=== PATIENT | male | born 1950 | race Caucasian/White ===

== ENCOUNTER → 2020-07-10 | Outpatient (CLI) | payer OTHER, MEDICARE ==
[~2020-07-10] MED LIST: ASPIRIN EC325 M1 PO; CLONIDINE HCL0.3 M3 PO; COREG25 M1 PO; ESTER-C 1,0001 EACH PO; FLECAINIDE ACET50 M2 PO; HYDROCHLOROTHIA25 M2 PO; IMBRUVICA420 MG PO; KEFLEX500 M1 PO; LOSARTAN POTAS100 MG PO; MAXZIDE-25 MG1 EACH PO; SIMVASTATIN80 MG PO; SUPER THERAVIT1 EACH PO; TOPROL XL25 MG PO; VITAMIN D31250 MC1 PO
== END ==
LOC: SJCVC 16:56
PROVIDERS: ATTEND Internal Medicine Cardiovascular Disease
DX: I48.0 Paroxysmal atrial fibrillation (principal); I49.5 Sick sinus syndrome; C91.10 Chronic lymphocytic leukemia of B-cell type not having achieved remission; I10 Essential (primary) hypertension; E78.5 Hyperlipidemia, unspecified; I25.10 Atherosclerotic heart disease of native coronary artery without angina pectoris; Z95.0 Presence of cardiac pacemaker; Z90.49 Acquired absence of other specified parts of digestive tract; Z88.8 Allergy status to other drugs, medicaments and biological substances; Z79.82 Long term (current) use of aspirin; Z79.899 Other long term (current) drug therapy; Z87.891 Personal history of nicotine dependence; Z82.49 Family history of ischemic heart disease and other diseases of the circulatory system

== ENCOUNTER → 2020-09-05 | Outpatient (CLI) | payer OTHER, MEDICARE ==
[~2020-09-05] MED LIST changes: +CARVEDILOL25 MG PO; +COZAAR 25 MG TA25 M1 PO; +ELIQUIS5 MG PO; +FLECAINIDE ACE150 MG PO; +LANOXIN 0.25M0.25 M1 PO; +VITAMIN D3250 MCG PO
[2020-09-05 09:35] LABS: ABSOLUTE NEUTROPHILS 1.7 thou/uL (1.4-8.2); BASOPHILS 0.7 % (0.0-2.0); EOSINOPHILS 2.2 % (0.0-3.0); HEMATOCRIT 36.8 % (42.0-52.0); HEMOGLOBIN 12.2 gm/dL (14.0-18.0); LYMPHOCYTES 42.9 % (24.0-44.0); MCH 29.9 pg (26.0-34.0); MCV 90.7 fL (80.0-100.0); POLYS 33.2 % (36.0-66.0); RBC 4.06 mil/uL (4.50-6.00); WBC 5.2 thou/uL (4.0-11.0)
[2020-09-05 09:57] LABS: ALBUMIN 3.6 g/dL (3.4-5.0); CALCIUM 8.8 mg/dL (8.5-10.1); CREATININE 1.2 mg/dL (0.7-1.3); TOTAL BILIRUBIN 0.4 mg/dL (0.2-1.0); TOTAL PROTEIN 6.3 g/dL (6.4-8.2)
[2020-09-05 13:00] LABS: LARGE PLATELETS FEW; PLATELET COUNT 123 thou/uL (150-400)
== END ==
LOC: CAT 08:47
PROVIDERS: ATTEND Internal Medicine Cardiovascular Disease
DX: I25.10 Atherosclerotic heart disease of native coronary artery without angina pectoris (principal); I48.91 Unspecified atrial fibrillation; M47.814 Spondylosis without myelopathy or radiculopathy, thoracic region; Z95.810 Presence of automatic (implantable) cardiac defibrillator

== ENCOUNTER 2020-09-07 06:29 | Observation (INO) | payer OTHER, MEDICARE ==
[~2020-09-07] VITALS: Ht 180.3 cm; Wt 84.4 kg
[~2020-09-07 06:29] MED LIST changes: -CARVEDILOL25 MG PO; -COZAAR 25 MG TA25 M1 PO; -ELIQUIS5 MG PO; -FLECAINIDE ACE150 MG PO; -LANOXIN 0.25M0.25 M1 PO; -VITAMIN D3250 MCG PO
[2020-09-07 07:42] VITALS: BP 147/77
[2020-09-07] MEDS ORDERED: CARVEDILOL25 MG PO ×3 (08:00→08:08)
[2020-09-07] MEDS ORDERED: LANOXIN 0.25M0.25 M1 PO ×2 (08:01→08:02)
[2020-09-07] MEDS ORDERED: FLECAINIDE ACE150 MG PO (08:03)
[2020-09-07] MEDS ORDERED: ESTER-C 1,0001 EACH PO (08:03)
[2020-09-07] MEDS ORDERED: ELIQUIS5 MG PO (08:03)
[2020-09-07] MEDS ORDERED: COZAAR 25 MG TA25 M1 PO (08:04)
[2020-09-07] MEDS ORDERED: IMBRUVICA420 MG PO (08:04)
[2020-09-07] MEDS ORDERED: MAXZIDE-25 MG1 EACH PO (08:05)
[2020-09-07] MEDS ORDERED: SIMVASTATIN80 MG PO (08:05)
[2020-09-07] MEDS ORDERED: VITAMIN D3250 MCG PO (08:07)
[2020-09-07 08:18] LABS: HEMATOCRIT 36.2 % (42.0-52.0); MCHC 33.1 g/dL (28.0-37.0); MCV 90.9 fL (80.0-100.0); RBC 3.99 mil/uL (4.50-6.00); RDW 14.9 % (10.5-14.5); WBC 5.4 thou/uL (4.0-11.0)
[2020-09-07 08:35] LABS: APTT 27.4 Seconds (24.5-32.8); PROTIME 10.9 Seconds (10.5-12.1)
[2020-09-07 08:41] LABS: CALCIUM 8.6 mg/dL (8.5-10.1); CREATININE 1.6 mg/dL (0.7-1.3); POTASSIUM 4.1 mmol/L (3.5-5.1)
[2020-09-07 08:43] LABS: ALBUMIN 3.7 g/dL (3.4-5.0); TOTAL BILIRUBIN 0.3 mg/dL (0.2-1.0); TOTAL PROTEIN 6.2 g/dL (6.4-8.2)
[2020-09-07 08:57] LABS: ABSOLUTE NEUTROPHILS 1.6 thou/uL (1.4-8.2); ATYPICAL LYMPHS 1 %; LARGE PLATELETS FEW; PLATELET COUNT 128 thou/uL (150-400)
--- NOTE | 2020-09-07 11:14 | TEE ---
[facility] [place] [address] TRANSESOPHAGEAL ECHOCARDIOGRAM Name: GAVINO BARCENAS Room #: REG [facility]#: [id number] Admission: 09/07/20 Attend Phys: Tyler Gould MD Discharge: Date of : 50 Report #: [id number] THIS REPORT FOR: cc: Mark Cole MD, Mohd I. MD Santiago, Patrick MD [facility] ~ ADDENDUM APPROVED REPORT Study performed: 09/07/2020 08:53:49 EXAM: Comprehensive 2D, Doppler, and color-flow Echocardiogram Patient Location: Out-Patient Room #: EP Status: routine BSA: 2.04 HR: 62 bpm BP: 140/68 mmHg Rhythm: Pacemaker Other Information Study Quality: Good Indications Atrial Fibrillation Echo Enhancing Agent Indication: Rule out Shunt Agent(s) / Amount(s) Used: Agitated Saline 7 cc Procedure After obtaining informed consent, patient underwent transesophageal echo in the EP Lab. Type of Sedation : General Anesthesia Sedation was administered by Anesthesiologist. Sedation start time: 855 Case end Time: 900 Sedation was achieved intravenously with: Fentanyl (100) Transesophageal probe was inserted and advanced into esophagus without difficulty by Leoncio Davila MD. Echo enhancement indication: R/O Septal defect. Echo enhancement agent administered: Agitated Saline The NATALIE was performed without complications. Throughout the procedure, the blood pressure, pulse oximetry, cardiac rhythm, and rate were monitored. [facility] [address] [place] [address] TRANSESOPHAGEAL ECHOCARDIOGRAM Name: GAVINO BARCENAS Room #: REG [facility]#: [id number] Admission: 09/07/20 Attend Phys: Tyler Gould Discharge: Date of : 50 Report #: [id number] The patient tolerated the procedure without adverse effects. Recovery from conscious sedation was uneventful and vital signs were stable. Left Ventricle The left ventricle is normal size. There is normal LV segmental wall motion. There is normal left ventricular wall thickness. The left ventricular systolic function is normal. The left ventricular ejection fraction is within the normal range. LVEF is 60-65%. Right Ventricle The right ventricle is normal size. The right ventricular systolic function is normal. Pacemaker lead is present in the right ventricle. Atria Left atrium is dilated. No thrombus is visualized in the left atrium or appendage. Right atrium is dilated. Pacemaker lead is present in the right atrium. Aortic Valve The aortic valve is normal in structure. No aortic regurgitation is present. There is no aortic valvular stenosis. Mitral Valve The mitral valve is normal in structure. Mild mitral regurgitation. No evidence of mitral valve stenosis. Tricuspid Valve The tricuspid valve is normal in structure. Mild tricuspid regurgitation. Pulmonic Valve The pulmonary valve is normal in structure. There is no pulmonic valvular regurgitation. Great Vessels The aortic root is normal in size. Pericardium There is no pericardial effusion. <Conclusion> Consent was obtained Anesthesia performed by the anesthesiologist After proper sedation esophageal probe was advanced without difficulty [facility] [address] [place] [address] TRANSESOPHAGEAL ECHOCARDIOGRAM Name: GAVINO BARCENAS Room #: REG [facility].#: [id number] Admission: 09/07/20 Attend Phys: [facility] Discharge: Date of : 50 Report #: [id number] Left atrial appendage moderate size, no obvious mass or clot detected Normal left ventricle size/wall thickness ejection fraction of 60% Normal right ventricular size/function Right atrium mildly dilated Normal aortic valve structure and function Mild mitral/tricuspid valve insufficiency No evidence of ASD/VSD by color flow/bubble study Normal aortic root size No pericardial effusion Aorta; minimal calcification detected <ELECTRONICALLY SIGNED> By: Leoncio Davila MD, FACC 09/07/20 1114 1114 13 Leoncio Davila MD, FACC /INF
[2020-09-07 14:20] VITALS: BP 151/61
--- NOTE | 2020-09-07 14:39 | NUR ---
Pt arrived from EP lab VSS, right groin dressing CDI, pulses present, foot warm. Pt states he "feels good just ready for some dinner".
[2020-09-07 14:40] VITALS: BP 149/62
[2020-09-07 14:55] VITALS: BP 145/58
[2020-09-07 16:00] VITALS: BP 149/64
[2020-09-07 17:00] VITALS: BP 152/63
[2020-09-08 00:55] VITALS: BP 150/79
[2020-09-08 04:40] LABS: CALCIUM 8.4 mg/dL (8.5-10.1); CREATININE 1.3 mg/dL (0.7-1.3); POTASSIUM 3.9 mmol/L (3.5-5.1)
[2020-09-08 04:45] VITALS: BP 155/79
--- NOTE | 2020-09-08 06:39 | NUR ---
ASSUMED CARE AT 1900. PT DENIES SOB OR NAUSEA. C/O MILD CHEST PAIN THAT IMPROVED AFTER SITTING UP. REPORTED TROUBLE FALLING ASLEEP. RIGHT GROIN SITE C/D/I AND WITHOUT HEMATOMA OR BRUISING. NO OTHER CONCERNS, WILL CONTINUE TO MONITOR.
[2020-09-08 08:15] VITALS: BP 153/71
[2020-09-08 12:27] VITALS: BP 153/74
[2020-09-08 12:44] VITALS: BP 153/69
--- NOTE | 2020-09-10 11:42 | P ---
[facility] [place] [address] PROCEDURE REPORT Name: GAVINO BARCENAS Room #: 217-P [facility] Marybeth Colunga#: [id number] Admission: 09/07/20 Attend Phys: Tyler Gould MD Discharge: 09/08/20 Date of : 50 Report #: [id number] THIS REPORT FOR: cc: Mark Cole MD, Mohd I. MD Couchonnal, Luis F. MD ~ ATRIAL FIBRILLATION ABLATION PREOPERATIVE DIAGNOSIS: Atrial fibrillation. POSTOPERATIVE DIAGNOSES: 1. Atrial fibrillation 2. Typical atrial flutter. HISTORY: The patient is a 70-year-old male with a history of recurrent paroxysmal atrial fibrillation as well as sick sinus syndrome, status post pacemaker implantation. He also has a history of leukemia and is on oral chemotherapeutic agents, which are now on hold, so that he can be anticoagulated for this procedure. He is here for atrial fibrillation and atrial flutter ablation. PROCEDURE PERFORMED: 1. Atrial fibrillation ablation -- CPT code 66859. 2. 3D mapping. CPT code 00050. 3. Intracardiac echo, CPT code 99500. 4. Second pathway ablation -- CPT code 75299. 5. Preprocedural pacemaker reprogramming, CPT code 04820. 6. Post-procedural pacemaker reprogramming, CPT code 09057. DESCRIPTION OF PROCEDURE: The patient was brought to the EP laboratory in a fasting and sedated state, prepped and draped in a sterile fashion. I injected lidocaine at the right groin and obtained access to the right femoral vein x 3, placing an 8, 9 and 7-Arabic short sheath. Prior to the ablation, I reprogrammed his pacemaker to the VVI mode. Of note, he was noted to be in atrial fibrillation today and this had been going on for approximately 6 hours per the device interrogation. Next, under fluoroscopy, I placed a decapolar catheter into the coronary sinus and ICE catheter into the right atrium. Using intracardiac ultrasound, I created a 3D geometry of the left atrium with evidence of two left and two right pulmonary veins. This was merged with the patient's cardiac CT scan. The patient was then systemically heparinized and a transseptal was performed using SL1 sheath and a [place] needle. This was straightforward and then I exchanged the SL1 sheath for the Cryo sheath. Next,, I placed a Lasso catheter in the left atrium and created a 3D geometry and voltage map of the left atrium and then we started by isolating the pulmonary veins. The left superior pulmonary vein underwent two 4-minute freezes and [address] [address] PROCEDURE REPORT Name: GAVINO BARCENAS Room #: 217-P [facility] Marybeth ChiangRKassie#: [id number] Admission: 09/07/20 Attend Phys: Tyler Gould MD Discharge: 09/08/20 Date of : 50 Report #: [id number] appeared to be isolated. I then turned my attention in the left inferior pulmonary vein and performed a 300-second freeze and the vein isolated at 46 seconds. I then turned my attention to the right superior pulmonary vein and performed a 4-minute followed by 3-minute freeze, which resulted in isolation. The right inferior pulmonary vein underwent two 4-minute freezes and appeared to be isolated. At this point, the patient was cardioverted and was in sinus rhythm, but then went into typical atrial flutter with a negative sawtooth flutter waves in the inferior leads. Proximal and distal activation along the CS and cardiac cycle length of 320 milliseconds. I re-interrogated the pulmonary veins and it appeared that the left veins had reconnected. Therefore, the left superior pulmonary vein underwent an additional 3-minute freeze and a 2-minute freeze which did not result in isolation. Therefore, I decided to go back to the left inferior pulmonary vein and I performed a 300-second freeze, which resulted in isolation in 62 seconds. When I went back to interrogate the left inferior pulmonary vein, this appeared to be isolated. I did pace the patient out of atrial flutter and I performed pacing from the left superior pulmonary vein and this appeared to be isolated and inserted the left inferior pulmonary vein. The right-sided veins remained isolated from the prior ablation. ATRIAL FLUTTER ABLATION: Next, the patient was prepped for atrial flutter ablation. An 8 mm ablation catheter was placed into the right atrium via the ramp sheath. Ablation was performed at 70 aparicio and 60 degrees. Prior to ablation, the transisthmus conduction time was around 20 milliseconds and post-ablation transisthmus conduction time was now 200 milliseconds and with an activation sequence consistent with bidirectional block. As such, the patient was back in sinus rhythm and doing well. Intracardiac ultrasound showed no evidence of pericardial effusion. The patient received systemic protamine and catheters and sheaths were pulled and a [id number] suture was performed in the right groin region. The pacemaker was interrogated and found to be functioning normally and I programmed the device back to the MVP mode and I did put on atrial preference pacing to suppress any further atrial arrhythmias. The patient awoke neurologically and hemodynamically intact. CONCLUSION: 1. Successful AFib ablation with isolation of the pulmonary veins. 2. Successful atrial flutter ablation with bidirectional block. 3. Successful pacemaker reprogramming. <ELECTRONICALLY SIGNED> By: Tyler Gould MD 09/10/20 1142 1349 [id number] Tyler Gould MD /nt
== END 2020-09-08 12:56 | disposition home or self-care (01) ==
LOC: CATH → 2N 11:15 → CATH 12:19 → 2N 09-08 12:56
PROVIDERS: Nurse Practitioner Adult Health; ADMIT Internal Medicine Cardiovascular Disease; ATTEND Internal Medicine Cardiovascular Disease
DX: I48.91 Unspecified atrial fibrillation (principal); I10 Essential (primary) hypertension; E78.5 Hyperlipidemia, unspecified; Z79.899 Other long term (current) drug therapy
CPT/HCPCS: 70005

== ENCOUNTER → 2020-09-18 | Outpatient (CLI) | payer OTHER, MEDICARE ==
[~2020-09-18] MED LIST changes: +CARVEDILOL25 MG PO; +COZAAR 25 MG TA25 M1 PO; +ELIQUIS5 MG PO; +FLECAINIDE ACE150 MG PO; +LANOXIN 0.25M0.25 M1 PO; +VITAMIN D3250 MCG PO; +ZOCOR40 MG PO
== END ==
LOC: SJCVC 10:22
PROVIDERS: ATTEND Internal Medicine Cardiovascular Disease
DX: R94.31 Abnormal electrocardiogram [ECG] [EKG] (principal); I48.0 Paroxysmal atrial fibrillation; I25.10 Atherosclerotic heart disease of native coronary artery without angina pectoris; E78.5 Hyperlipidemia, unspecified; I49.5 Sick sinus syndrome; I42.9 Cardiomyopathy, unspecified; Z87.891 Personal history of nicotine dependence; Z72.89 Other problems related to lifestyle; Z79.82 Long term (current) use of aspirin; Z79.899 Other long term (current) drug therapy; Z95.0 Presence of cardiac pacemaker; Z88.5 Allergy status to narcotic agent

== ENCOUNTER → 2020-09-19 | Outpatient (CLI) | payer OTHER, MEDICARE ==
[~2020-09-19] VITALS: Ht 180.3 cm; Wt 81.8 kg
[2020-09-19 07:37] VITALS: BP 132/67
[2020-09-19 07:53] LABS: ABSOLUTE NEUTROPHILS 4.5 thou/uL (1.4-8.2); BASOPHILS 0.4 % (0.0-2.0); EOSINOPHILS 2.2 % (0.0-3.0); HEMATOCRIT 37.6 % (42.0-52.0); HEMOGLOBIN 12.4 gm/dL (14.0-18.0); LYMPHOCYTES 26.8 % (24.0-44.0); MCH 29.7 pg (26.0-34.0); MCHC 32.9 g/dL (28.0-37.0); MCV 90.1 fL (80.0-100.0); MONOCYTES 14.2 % (1.0-8.0); PLATELET COUNT 156 thou/uL (150-400); POLYS 56.4 % (36.0-66.0); RBC 4.17 mil/uL (4.50-6.00); RDW 14.8 % (10.5-14.5); WBC 7.9 thou/uL (4.0-11.0)
[2020-09-19 08:08] LABS: CREATININE 1.7 mg/dL (0.7-1.3); POTASSIUM 3.9 mmol/L (3.5-5.1)
[2020-09-19 08:09] LABS: APTT 29.1 Seconds (24.5-32.8); PROTIME 10.9 Seconds (10.5-12.1)
[2020-09-19 08:11] LABS: ALBUMIN 3.4 g/dL (3.4-5.0); TOTAL BILIRUBIN 0.4 mg/dL (0.2-1.0); TOTAL PROTEIN 6.3 g/dL (6.4-8.2)
--- NOTE | 2020-10-01 08:38 | P ---
[facility] [place] [address] PROCEDURE REPORT Name: GAVINO BARCENAS Room #: REG [facility] Bartholomew.#: [id number] Admission: 09/19/20 Attend Phys: Tyler Gould MD Discharge: Date of : 50 Report #: [id number] THIS REPORT FOR: cc: Mark Cole MD, Mohd I. MD Couchonnal, Luis F. MD ~ DATE OF SERVICE: 09/19/2020 PREOPERATIVE DIAGNOSIS: Atrial fibrillation. POSTOPERATIVE DIAGNOSIS: Atrial fibrillation. DESCRIPTION OF PROCEDURE: The patient underwent informed consent. He was prepped in a standard fashion. Patches placed in AP position. He was then sedated by the anesthesiology service and underwent a 200 joule synchronized cardioversion with amish of sinus rhythm. No procedure related complications. CONCLUSION: Successful direct current cardioversion with amish of sinus rhythm. <ELECTRONICALLY SIGNED> By: Tyler Gould MD 10/01/20 0838 [id number] 185 Tyler Gould MD /nt
== END | disposition home or self-care (01) ==
LOC: CATH 06:35
PROVIDERS: ATTEND Internal Medicine Cardiovascular Disease
DX: I48.91 Unspecified atrial fibrillation (principal); I10 Essential (primary) hypertension; E78.5 Hyperlipidemia, unspecified; I25.10 Atherosclerotic heart disease of native coronary artery without angina pectoris; Z98.890 Other specified postprocedural states; Z79.899 Other long term (current) drug therapy; Z82.49 Family history of ischemic heart disease and other diseases of the circulatory system; Z95.0 Presence of cardiac pacemaker; Z79.891 Long term (current) use of opiate analgesic; Z79.01 Long term (current) use of anticoagulants
CPT/HCPCS: 62110; 62900

== ENCOUNTER → 2020-11-06 | Outpatient (CLI) | payer OTHER, MEDICARE ==
[~2020-11-06] VITALS: Ht 180.3 cm; Wt 81.6 kg
[~2020-11-06] MED LIST changes: +PACERONE200 MG PO
[2020-11-06 07:35] VITALS: BP 186/93
[2020-11-06 07:36] LABS: ABSOLUTE NEUTROPHILS 3.7 thou/uL (1.4-8.2); BASOPHILS 0.2 % (0.0-2.0); EOSINOPHILS 3.3 % (0.0-3.0); HEMATOCRIT 40.4 % (42.0-52.0); HEMOGLOBIN 13.1 gm/dL (14.0-18.0); LYMPHOCYTES 33.8 % (24.0-44.0); MCH 28.7 pg (26.0-34.0); MCHC 32.5 g/dL (28.0-37.0); MCV 88.3 fL (80.0-100.0); MONOCYTES 10.6 % (1.0-8.0); PLATELET COUNT 141 thou/uL (150-400); POLYS 52.1 % (36.0-66.0); RBC 4.57 mil/uL (4.50-6.00); RDW 14.4 % (10.5-14.5); WBC 7.1 thou/uL (4.0-11.0)
[2020-11-06 07:45] LABS: CALCIUM 8.6 mg/dL (8.5-10.1); CREATININE 1.5 mg/dL (0.7-1.3)
[2020-11-06 07:53] LABS: ALBUMIN 3.6 g/dL (3.4-5.0); TOTAL BILIRUBIN 0.3 mg/dL (0.2-1.0); TOTAL PROTEIN 6.6 g/dL (6.4-8.2)
[2020-11-06 08:27] LABS: APTT 32.8 Seconds (24.5-32.8); INR 0.96; PROTIME 10.5 Seconds (10.5-12.1)
--- NOTE | 2020-11-06 09:00 | NUR ---
PT APPEARED TO BE IN AFIB WHEN FIRST PLACED ON MONITOR. BUT WHEN PACEMAKER INTEROGATED FOUND TO BE IN SINUS RHYTHM. SO PT NOT CARDIOVERTED. IV DC'D. PT TO CONTINUE AMIODARONE AT 200 MG DAILY AND CONTINUE ELIQUIS FOR FIVE MORE DAYS. PT AND VERBALIZE UNDERSTANDING. ESCORTED TO EXIT.
== END | disposition home or self-care (01) ==
LOC: CATH 06:28
PROVIDERS: ATTEND Internal Medicine Cardiovascular Disease
DX: I48.91 Unspecified atrial fibrillation (principal); Z53.8 Procedure and treatment not carried out for other reasons; I10 Essential (primary) hypertension; I25.10 Atherosclerotic heart disease of native coronary artery without angina pectoris; E78.5 Hyperlipidemia, unspecified; Z98.890 Other specified postprocedural states; Z79.899 Other long term (current) drug therapy; Z79.01 Long term (current) use of anticoagulants; Z88.8 Allergy status to other drugs, medicaments and biological substances; Z20.822 Contact with and (suspected) exposure to COVID-19

== ENCOUNTER → 2020-12-05 | Outpatient (CLI) | payer OTHER, MEDICARE | LOC: SJCVC 12:48 | PROVIDERS: ATTEND Internal Medicine Cardiovascular Disease | DX: R94.31 Abnormal electrocardiogram [ECG] [EKG] (principal); I48.0 Paroxysmal atrial fibrillation; C91.10 Chronic lymphocytic leukemia of B-cell type not having achieved remission; I49.5 Sick sinus syndrome; Z95.0 Presence of cardiac pacemaker; Z79.899 Other long term (current) drug therapy; Z79.82 Long term (current) use of aspirin; Z88.5 Allergy status to narcotic agent; Z87.891 Personal history of nicotine dependence; Z72.89 Other problems related to lifestyle ==